=== PATIENT | female | born 1995 | race Asian ===

== ENCOUNTER 2021-10-06 20:45 | Emergency (ER) | payer MEDICAID ==
[~2021-10-06] VITALS: Ht 154.9 cm; Wt 45.4 kg
--- NOTE | 2021-10-06 21:12 | NUR ---
Called for patient to triage. No response.
[2021-10-06 22:40] VITALS: BP_SYST 140
--- NOTE | 2021-10-06 23:00 | NUR ---
Dr. Frazier with patient in tent 1.
--- NOTE | 2021-10-06 23:12 | NUR ---
Pt came from home with c/o of upper abd pain that started today at 1100 after eating spicy food. Pt reports having diarrhea that started today as well. Pt ambulatory, A&O x4, and following simple commands. Pt vomited during triage clear liquids.
[2021-10-06] MEDS ORDERED: MAG HYDROX/AL HYDROX/SIMETH 30 ML, DICYCLOMINE HCL 20 MG, LIDOCAINE VISCOUS 2% 15ML (PO... PO ONE ×3 (23:15)
[2021-10-06] MEDS ORDERED: ONDANSETRON HCL 4 MG/2 ML VIAL IM ONE (23:15)
[2021-10-07] MEDS ORDERED: SUCR1TAB78 PO (00:01)
[2021-10-07] MEDS ORDERED: FAMO40TA71 PO (00:01)
[2021-10-07] MEDS ORDERED: KETOROLAC TROMETHAMINE 30 MG VIAL IM ONE (00:30)
--- NOTE | 2021-10-07 00:45 | NUR ---
Pt refused vitals.
--- NOTE | 2021-10-07 01:11 | NUR ---
Patient refused to sign discharge paperwork.
== END 2021-10-07 01:11 | disposition home or self-care (01) ==
LOC: SED 20:45
DX: K29.70 Gastritis, unspecified, without bleeding (principal); R10.13 Epigastric pain; R11.2 Nausea with vomiting, unspecified; K21.9 Gastro-esophageal reflux disease without esophagitis; Z79.899 Other long term (current) drug therapy
CPT/HCPCS: 99284; 96372 ×2; J2001; J2405; J1885

== ENCOUNTER 2022-06-25 06:51 | Emergency (ER) | payer MEDICAID ==
[~2022-06-25] VITALS: Ht 154.9 cm; Wt 45.4 kg
[~2022-06-25 06:51] MED LIST: FAMO40TA71 PO; SUCR1TAB2 PO
[2022-06-25 07:15] VITALS: BP_SYST 154
--- NOTE | 2022-06-25 07:20 | NUR ---
RECEIVED PT FROM DALJIT MATHUR. PT BIB SELF FOR C/O ADOMINAL PAIN 7/10 AND CONSTIPATION X1 WEEK. PT WAS RECENTLY DIAGNOSED WITH GASTRITIS. PT IS AAOX4. ON R/A. SKIN WARM, CDI, NO EDEMA, DISTAL PULSES NORMAL. SIDERAILS UP X2.
--- NOTE | 2022-06-25 07:25 | NUR ---
DR. KATE AT BEDSIDE TO ASSESS PT.
[2022-06-25] MEDS ORDERED: HALOPERIDOL LACTATE 5 MG/ML VIAL IM ONE (07:30)
--- NOTE | 2022-06-25 07:40 | NUR ---
HALDOL 5MG IM GIVEN TO LEFT DELTOID. PT ON TELEMONITOR.
[2022-06-25 07:57] LABS: BILIRUBIN,URINE 1+ (NEGATIVE); BLOOD, URINE 3+ (NEGATIVE); GLUCOSE,URINE NEGATIVE (NEGATIVE); KETONES,URINE 1+ (NEGATIVE); LEUKOCYTE ESTERASE ,URINE TRACE (NEGATIVE); NITRITE, URINE NEGATIVE (NEGATIVE); PROTEIN URINE 1+ (NEGATIVE)
[2022-06-25 08:00] LABS: COLOR,URINE YELLOW (YELLOW)
[2022-06-25 08:01] LABS: CLARITY/URINE HAZY (CLEAR)
[2022-06-25 08:10] LABS: BACTERIA,URINE RARE /HPF (None Seen); MUCUS,URINE 3+ /LPF (None Seen)
[2022-06-25 08:17] LABS: BARBITURATE, URINE NEGATIVE (NEG <=200); BENZODIAZEPINE, URINE NEGATIVE (NEG <=150); CANNABINOID, URINE POSITIVE (NEG <=50); COCAINE, URINE NEGATIVE (NEG <=150); METHAMPHETAMINES SCREEN,URINE NEGATIVE (NEG <=500); OPIATE, URINE POSITIVE (NEG <=100); PHENCYCLIDINE SCREEN,URINE NEGATIVE (NEG <=25); UR TRICYCLIC ANTIDEPRESSANTS NEGATIVE (NEG <=300); URINE AMPHETAMINE NEGATIVE (NEG <=500); URINE METHADONE NEGATIVE (NEG <=200); URINE OXYCODONE SCREEN NEGATIVE (NEG <=100); URINE PROPOXYPHENE SCREEN NEGATIVE (NEG <=300)
--- NOTE | 2022-06-25 08:18 | NUR ---
U/S AND LABS COMPLETED.
[2022-06-25 08:25] LABS: BASOPHILS % (AUTO) 0.4 % (0.0-2.0); EOSINOPHILS % (AUTO) 0.1 % (0.0-4.0); HEMOGLOBIN 13.6 g/dL (12.0-16.0); LYMPHOCYTES # (AUTO) 1.3 K/uL (1.0-5.5); LYMPHOCYTES % (AUTO) 15.7 % (20.5-51.5); MEAN CORPUSCULAR HEMOGLOBIN 32 pg (27-31); MEAN CORPUSCULAR HGB CONC 34 % (32-36); MEAN CORPUSCULAR VOLUME 93 fL (79.0-98.0); MONOCYTES # (AUTO) 0.4 K/uL (0.0-1.0); MONOCYTES % (AUTO) 5.5 % (1.7-9.3); NEUTROPHILS # (AUTO) 6.4 K/uL (1.8-7.7); NEUTROPHILS % (AUTO) 78.3 % (40.0-70.0); PLATELET COUNT (AUTO) 215 K/uL (130-430); RED BLOOD CELL COUNT(AUTO) 4.32 MIL/uL (4.2-6.2); RED CELL DISTRIBUTION WIDTH 13.1 % (9.0-15.0); WHITE BLOOD COUNT (AUTO) 8.2 K/uL (4.8-10.8)
[2022-06-25] MEDS ORDERED: MAG HYDROX/AL HYDROX/SIMETH 30 ML, DICYCLOMINE HCL 20 MG, LIDOCAINE VISCOUS 2% 15ML (PO... PO ONE ×3 (08:30)
--- NOTE | 2022-06-25 08:35 | NUR ---
SCHEDULED MED GIVEN AND TOLERATED WELL.
[2022-06-25 08:39] VITALS: BP_SYST 138
[2022-06-25 08:42] LABS: CALCIUM 8.9 mg/dL (8.4-11.0); CREATININE 0.96 mg/dL (0.55-1.30)
[2022-06-25 08:46] LABS: ALBUMIN 4.2 g/dL (3.4-4.8); TOTAL BILIRUBIN 1.1 mg/dL (0.0-1.0)
[2022-06-25] MEDS ORDERED: METO-290 PO (08:50)
[2022-06-25] MEDS ORDERED: OMEP20CA15 PO (08:50)
--- NOTE | 2022-06-25 08:56 | NUR ---
PT ELOPED. DR. KATE WAS AT BEDSIDE AND DISCUSSED POC. PT WAS EDUCATED THAT HER POTASSIUM LEVEL WAS LOW AND WOULD NEED TO BE REPLACED, THEN PT WILL BE GIVEN A PRECRIPTION AND DISCHARGED. AFTER DR. KATE LEFT THE ROOM PT WALKED OUT OF HOSPITAL. Addendum: 06/25/22 at 0901 by [email or web address] PT ELOPED WITH NO IV ACCESS IN PLACE.
[2022-06-25] MEDS ORDERED: POTASSIUM CHLORIDE 20 MEQ/PKT PACKET PO ONE (09:00)
== END 2022-06-25 08:56 | disposition left against medical advice (07) ==
LOC: SED 06:51
DX: R11.10 Vomiting, unspecified (principal); R10.13 Epigastric pain; K21.9 Gastro-esophageal reflux disease without esophagitis; Z79.899 Other long term (current) drug therapy
CPT/HCPCS: 99285; 76705; 80307; 80053; 82150; 84703; 83690; 85025; 36415; 96372; 83605; 81000; J2001; J1630

== ENCOUNTER 2023-02-11 18:13 | Emergency (ER) | payer MEDICAID ==
[~2023-02-11] VITALS: Ht 154.9 cm; Wt 45.4 kg
[~2023-02-11 18:13] MED LIST changes: +METO-290 PO; +OMEP20CA15 PO
[2023-02-11 18:16] VITALS: BP_SYST 131; PULSE 89; RESP 22; TEMP 98.3; O2SAT 98
[2023-02-11] MEDS ORDERED: ONDANSETRON HCL 4 MG/2 ML VIAL ONE (18:42)
[2023-02-11] MEDS ORDERED: NACL 0.9% 1,000 ML IV ONE (18:45)
[2023-02-11] MEDS ORDERED: ONDANSETRON HCL 4 MG/2 ML VIAL IVP ONE ×2 (18:45→20:15)
[2023-02-11] MEDS ORDERED: PANTOPRAZOLE SODIUM 40 MG/VIAL (PROTONIX) IVP ONE (18:45)
[2023-02-11] MEDS ORDERED: MORPHINE 4 MG INJ. 4 MG/ML VIAL IVP ONE (19:00)
[2023-02-11] MEDS ORDERED: HALOPERIDOL LACTATE 5 MG/ML VIAL IVP ONE (19:00)
[2023-02-11 19:09] LABS: BASOPHILS % (AUTO) 0.2 % (0.0-2.0); EOSINOPHILS % (AUTO) 0.1 % (0.0-4.0); HEMATOCRIT 41.4 % (36-48); HEMOGLOBIN 13.6 g/dL (12.0-16.0); LYMPHOCYTES % (AUTO) 5.9 % (20.5-51.5); MEAN CORPUSCULAR HEMOGLOBIN 32 pg (27-31); MEAN CORPUSCULAR HGB CONC 33 % (32-36); MEAN CORPUSCULAR VOLUME 96 fL (79.0-98.0); MONOCYTES # (AUTO) 0.6 K/uL (0.0-1.0); MONOCYTES % (AUTO) 3.5 % (1.7-9.3); NEUTROPHILS # (AUTO) 15.8 K/uL (1.8-7.7); NEUTROPHILS % (AUTO) 90.3 % (40.0-70.0); PLATELET COUNT (AUTO) 285 K/uL (130-430); RED BLOOD CELL COUNT(AUTO) 4.31 MIL/uL (4.2-6.2); RED CELL DISTRIBUTION WIDTH 13.8 % (9.0-15.0); WHITE BLOOD COUNT (AUTO) 17.5 K/uL (4.8-10.8)
[2023-02-11 19:27] LABS: CALCIUM 9.9 mg/dL (8.4-11.0); CREATININE 0.91 mg/dL (0.55-1.30)
[2023-02-11 19:31] LABS: ALBUMIN 4.3 g/dL (3.4-4.8); TOTAL BILIRUBIN 0.8 mg/dL (0.0-1.0)
[2023-02-11] MEDS ORDERED: LORazepam 2 MG/ML VIAL IVP ONE (19:45)
[2023-02-11] MEDS ORDERED: IBUP-1969 PO (21:16)
[2023-02-11 21:26] LABS: BILIRUBIN,URINE NEGATIVE (NEGATIVE); BLOOD, URINE NEGATIVE (NEGATIVE); CLARITY/URINE CLEAR (CLEAR); COLOR,URINE YELLOW (YELLOW); GLUCOSE,URINE NEGATIVE (NEGATIVE); KETONES,URINE 3+ (NEGATIVE); LEUKOCYTE ESTERASE ,URINE NEGATIVE (NEGATIVE); NITRITE, URINE NEGATIVE (NEGATIVE); PROTEIN URINE 1+ (NEGATIVE); UROBILINOGEN,URINE 0.2 (0.2-1.0)
[2023-02-11 21:44] LABS: BARBITURATE, URINE NEGATIVE (NEG <=200); CANNABINOID, URINE POSITIVE (NEG <=50); COCAINE, URINE NEGATIVE (NEG <=150); METHAMPHETAMINES SCREEN,URINE NEGATIVE (NEG <=500); PHENCYCLIDINE SCREEN,URINE NEGATIVE (NEG <=25); UR TRICYCLIC ANTIDEPRESSANTS NEGATIVE (NEG <=300); URINE AMPHETAMINE NEGATIVE (NEG <=500); URINE METHADONE NEGATIVE (NEG <=200); URINE OXYCODONE SCREEN NEGATIVE (NEG <=100); URINE PROPOXYPHENE SCREEN NEGATIVE (NEG <=300)
[2023-02-11 21:45] LABS: BENZODIAZEPINE, URINE POSITIVE (NEG <=150); OPIATE, URINE POSITIVE (NEG <=100)
[2023-02-11 21:47] LABS: BACTERIA,URINE None Seen /HPF (None Seen); MUCUS,URINE 2+ /LPF (None Seen); RBC,URINE 0-3 /HPF (0-3); WBC,URINE NONE SEEN /HPF (0-3)
[2023-02-11 23:05] VITALS: BP_SYST 99; PULSE 95; RESP 18; TEMP 98.5; O2SAT 98
== END 2023-02-11 23:05 | disposition home or self-care (01) ==
LOC: SED 18:13
DX: R11.15 Cyclical vomiting syndrome unrelated to migraine (principal); K29.70 Gastritis, unspecified, without bleeding; D72.829 Elevated white blood cell count, unspecified; K21.9 Gastro-esophageal reflux disease without esophagitis; F12.90 Cannabis use, unspecified, uncomplicated; Z79.899 Other long term (current) drug therapy
CPT/HCPCS: 99284; 96374; 96375; 96361; 80307; 80053; 83690; 85025; 36415; 96376; 81025; 81000; 81001; 81015; J1630; J2060; J2405; C9113; J2270; J7030